=== PATIENT | male | born 1960 | race Hispanic/Latino ===

== ENCOUNTER 2025-07-05 14:41 | Inpatient (IN) | payer SELFPAY ==
[~2025-07-05] VITALS: Ht 165.1 cm; Wt 73.5 kg
[2025-07-05] VITALS (11 sets, daily range): BP systolic 83–108; BP diastolic 53–83; PULSE 50–62; RESP 16–20; TEMP 97.4–97.9; O2SAT 89–99
[2025-07-05] MEDS ORDERED: SODIUM CHLORIDE 0.9% 1000ML 2,000 ML ONE (15:27)
[2025-07-05] MEDS: GLUCAGON FOR INJ 1 MG VIAL IV ONE ×2 (15:52→17:56)
[2025-07-05] MEDS: SODIUM CHLORIDE 0.9% 1000ML 1,000 ML IV STA ×2 (15:53)
[2025-07-05 15:58] LABS: BASOPHILS % 0.6 % (0.0-1.0); EOSINOPHILS % 1.0 % (0.0-6.0); LYMPHOCYTES % 17.6 % (18.0-39.1); MONOCYTES % 4.6 % (4.4-11.3); NEUTROPHILS % 75.8 % (38.7-80.0); RED CELL DISTRIBUTION WIDTH 13.2 % (11.7-14.4)
[2025-07-05 16:03] LABS: INR 1.01
[2025-07-05] MEDS: ONDANSETRON HCL INJ 2MG/ML 2ML 2 MG/ML VIAL IV STA (16:05)
[2025-07-05 16:14] LABS: EST GLOMERULAR FILTRATION RATE 59 ML/MIN (>=60)
[2025-07-05 16:29] LABS: ETHANOL < 10.0 mg/dL (0.0-10.0)
[2025-07-05] MEDS ORDERED: ONDANSETRON HCL INJ 2MG/ML 2ML 2 MG/ML VIAL IV PRN (17:15)
[2025-07-05] MEDS ORDERED: DEXTROSE 50% SYRINGE 50 ML IV PRN (17:30)
[2025-07-05] MEDS: SODIUM CHLORIDE 0.9% 1000ML 1,000 ML IV SCH (18:02)
[2025-07-05] MEDS ORDERED: CALCIUM CHLORIDE 13.6 MEQ in SODIUM CHLORIDE 0.9% 100 ML IV ONE (20:00)
[2025-07-05] MEDS: CALCIUM GLUC 1 G/50 ML NACL 50 ML IV ONE (20:30)
[2025-07-05 20:52] LABS: AMPHETAMINES SCREEN,URINE NEGATIVE (NEGATIVE); CANNABINOIDS SCREEN,URINE NEGATIVE (NEGATIVE); COCAINE SCREEN,URINE NEGATIVE (NEGATIVE); LEUKOCYTE ESTERASE ,URINE NEGATIVE (NEGATIVE); METHADONE SCREEN, URINE NEGATIVE (NEGATIVE); OPIATES SCREEN,URINE NEGATIVE (NEGATIVE); PROTEIN,URINE DIPSTICK NEGATIVE (NEGATIVE); URINE UROBILINOGEN 4 mg/dL (0.2 - 1)
[2025-07-05] MEDS ORDERED: METOPROLOL TART50 MG PO (21:03)
[2025-07-05] MEDS ORDERED: METFORMIN HCL500 MG PO (21:03)
[2025-07-05] MEDS: ATROPINE SULFATE 1 MG/ML VIAL IV ONE (21:05)
[2025-07-05] MEDS: INSULIN REGULAR, HUMAN 100 UNIT/1 ML SQ SCH (21:40)
[2025-07-06] VITALS (96 sets, daily range): BP systolic 79–139; BP diastolic 35–100; PULSE 43–100; RESP 10–34; TEMP 97.8–97.9; O2SAT 89–100
[2025-07-06] MEDS: ATROPINE SULFATE INJ 0.4 MG/ML VIAL IV PRN (01:04)
[2025-07-06 06:36] LABS: BASOPHILS % 0.2 % (0.0-1.0); EOSINOPHILS % 0.4 % (0.0-6.0); LYMPHOCYTES % 18.3 % (18.0-39.1); MONOCYTES % 5.8 % (4.4-11.3); NEUTROPHILS % 74.9 % (38.7-80.0); RED CELL DISTRIBUTION WIDTH 12.8 % (11.7-14.4)
[2025-07-06 06:52] LABS: EST GLOMERULAR FILTRATION RATE 84.0 ML/MIN (>=60)
[2025-07-07] VITALS (61 sets, daily range): BP systolic 84–137; BP diastolic 43–90; PULSE 52–98; RESP 11–32; TEMP 98.5–99.9; O2SAT 93–100
[2025-07-07] MEDS ORDERED: TEMAZEPAM 7.5 MG CAP PO PRN (21:00)
[2025-07-08] VITALS (48 sets, daily range): BP systolic 77–129; BP diastolic 42–83; PULSE 52–90; RESP 6–27; TEMP 97.8–98.4; O2SAT 94–100
[2025-07-08 05:04] LABS: BASOPHILS % 0.5 % (0.0-1.0); EOSINOPHILS % 2.4 % (0.0-6.0); LYMPHOCYTES % 21.6 % (18.0-39.1); MONOCYTES % 5.4 % (4.4-11.3); NEUTROPHILS % 69.9 % (38.7-80.0); RED CELL DISTRIBUTION WIDTH 13.0 % (11.7-14.4)
[2025-07-08 05:32] LABS: EST GLOMERULAR FILTRATION RATE 97.0 ML/MIN (>=60)
[2025-07-08] MEDS: MIDODRINE HCL 5 MG TABLET PO ONE (12:21)
[2025-07-08] MEDS: MIDODRINE 2.5 MG TAB PO ONE (17:32)
[2025-07-08] MEDS: SODIUM CHLORIDE 0.9% 1000ML 500 ML IV ONE (23:09)
[2025-07-08] MEDS: VASOPRESSIN 60 UNIT in DEXTROSE 5% 50ML 50 ML IV SCH (23:10)
[2025-07-09] VITALS (60 sets, daily range): BP systolic 75–125; BP diastolic 47–90; PULSE 45–95; RESP 6–30; TEMP 97.7–98.8; O2SAT 93–100
[2025-07-10] VITALS (44 sets, daily range): BP systolic 71–161; BP diastolic 47–93; PULSE 61–103; RESP 3–31; TEMP 97.8–98.4; O2SAT 94–100
[2025-07-11] VITALS (17 sets, daily range): BP systolic 84–128; BP diastolic 50–102; PULSE 71–101; RESP 0–25; TEMP 98–98.4; O2SAT 98–99
[2025-07-12] VITALS (16 sets, daily range): BP systolic 94–138; BP diastolic 68–114; PULSE 67–101; RESP 10–27; TEMP 98–98.3; O2SAT 98–100
[2025-07-13] VITALS (17 sets, daily range): BP systolic 93–125; BP diastolic 53–94; PULSE 75–100; RESP 16–24; TEMP 97.9–98.3; O2SAT 95–99
[2025-07-13] MEDS: SERTRALINE HCL 100 MG TAB PO SCH (20:26)
[2025-07-13] MEDS: QUETIAPINE FUMARATE 25 MG TAB PO SCH (20:26)
[2025-07-13] MEDS: BUPROPION HCL SR 150 MG TAB PO SCH (21:16)
[2025-07-14] VITALS (9 sets, daily range): BP systolic 106–134; BP diastolic 75–87; PULSE 83–100; RESP 18–19; TEMP 97.9–98.9; O2SAT 95–99
[2025-07-14] MEDS: ACETAMINOPHEN 325 MG TAB PO PRN (13:33)
[2025-07-15] VITALS (8 sets, daily range): BP systolic 108–128; BP diastolic 79–88; PULSE 74–90; RESP 16–20; TEMP 97.3–98.9; O2SAT 96–100
[2025-07-16] VITALS (7 sets, daily range): BP systolic 113–124; BP diastolic 79–86; PULSE 80–89; RESP 16–18; TEMP 97.7–98.6; O2SAT 95–99
== END 2025-07-16 20:57 | disposition psychiatric hospital, planned readmission (93) | DRG 918 ==
LOC: ER 15:48 → ERHOLD 17:10 → ICU 22:09 → MED/SURG3 07-13 15:39
PROVIDERS: ADMIT Internal Medicine; ATTEND Internal Medicine
PROC: 05HY33Z Insertion of Infusion Device into Upper Vein, Percutaneous Approach (ICD-10-PCS; principal; 2025-07-05)
PROC: 3E033XZ Introduction of Vasopressor into Peripheral Vein, Percutaneous Approach (ICD-10-PCS; 2025-07-05)
PROC: 0T9B70Z Drainage of Bladder with Drainage Device, Via Natural or Artificial Opening (ICD-10-PCS; 2025-07-07)
DX: T44.7X2A Poisoning by beta-adrenoreceptor antagonists, intentional self-harm, initial encounter (principal); R45.851 Suicidal ideations; I95.89 Other hypotension; I10 Essential (primary) hypertension; F32.A Depression, unspecified; R00.1 Bradycardia, unspecified; R53.1 Weakness; E11.65 Type 2 diabetes mellitus with hyperglycemia; K75.9 Inflammatory liver disease, unspecified; R33.9 Retention of urine, unspecified; R00.0 Tachycardia, unspecified; Z79.84 Long term (current) use of oral hypoglycemic drugs; Y92.009 Unspecified place in unspecified non-institutional (private) residence as the place of occurrence of the external cause
CPT/HCPCS: 36415; 36569; 36600; 70450; 71045; 72125; 80053; 80307; 80320; 80329; 81001; 82550; 82948; 83690; 83735; 83880; 84443; 84484; 85025; 85610; 85730; 93005; 93306; 96372; 99252; 99285; J0461; J1610; J2405; J7030; J7050